=== PATIENT | female | born 1970 | race Caucasian/White ===

== ENCOUNTER → 2017-06-03 | Outpatient (CLI) | payer MEDICAID ==
[~2017-06-03] MED LIST: ALBU18HF INH; BUPR150T6 PO; BUTA1CAP59 PO; CHRO1TAB7 PO; CYCL-259 PO; FEXO180T15 PO; MELO15TA24 PO; ONDA4TAB12 PO; OXYC-307 PO; PROM25TA10 PO; SERT100T PO; SUMA100T4 PO; TURM500C7 PO
== END | disposition home or self-care (01) ==
LOC: STAR 11:28
PROVIDERS: ATTEND Specialist
DX: Z02.9 Encounter for administrative examinations, unspecified (principal)

== ENCOUNTER 2017-06-10 07:47 | Day surgery (SDC) | payer MEDICAID ==
[~2017-06-10] VITALS: Ht 165.1 cm; Wt 69.2 kg
[2017-06-10] MEDS ORDERED: LACTATED RINGERS 1,000 ML IV SCH (08:13)
[2017-06-10 08:39] VITALS: BP 116/77
[2017-06-10] MEDS ORDERED: MIDAZOLAM 1 MG/ML, 2ML ONE ×2 (09:24→11:25)
[2017-06-10] MEDS ORDERED: FENTANYL PF 100 MCG/2ML ONE ×3 (09:25→11:25)
[2017-06-10] MEDS ORDERED: KETOROLAC 30 MG/1 ML ONE (10:15)
[2017-06-10] MEDS ORDERED: NEOSTIGMINE 1 MG/ML, 10ML ONE (10:15)
[2017-06-10] MEDS ORDERED: DEXAMETHASONE 4 MG/ML, 1ML ONE (10:15)
[2017-06-10] MEDS ORDERED: PROPOFOL 10 MG/ML, 20ML ONE (10:15)
[2017-06-10] MEDS ORDERED: GLYCOPYRROLATE 0.2MG/1ML, 5ML ONE (10:15)
[2017-06-10] MEDS ORDERED: ONDANSETRON 2MG/ML, 2ML ONE (10:15)
[2017-06-10] MEDS ORDERED: SUCCINYLCHOLINE 20 MG/ML, 10ML ONE (10:15)
[2017-06-10] MEDS ORDERED: ROCURONIUM 10 MG/ML ONE (10:15)
[2017-06-10] MEDS ORDERED: ACETAMINOPHEN 650 MG/20.3 ML UDC ONE (11:24)
[2017-06-10] MEDS ORDERED: OXYcodone 5 MG/5 ML ORAL.SOL UDC ONE (11:25)
[2017-06-10] MEDS ORDERED: METOPROLOL 1 MG/ML, 5ML IV PRN (11:30)
[2017-06-10] MEDS ORDERED: ALBUTEROL SULFATE 2.5 MG/3 ML NPPB PRN (11:30)
[2017-06-10] MEDS ORDERED: HYDROcodone/APAP 7.5-325MG/15ML UDC PO PRN (11:30)
[2017-06-10] MEDS ORDERED: PROMETHAZINE 25 MG/ML, 1ML IV PRN (11:30)
[2017-06-10] MEDS ORDERED: OXYcodone 5 MG/5 ML ORAL.SOL UDC PO PRN (11:30)
[2017-06-10] MEDS ORDERED: DIAZEPAM 5 MG/ML, 2ML IVPush PRN (11:30)
[2017-06-10] MEDS ORDERED: hydrALAzine 20 MG/ML, 1ML IV PRN (11:30)
[2017-06-10] MEDS ORDERED: METOCLOPRAMIDE 5 MG/ML, 2ML IV PRN (11:30)
[2017-06-10] MEDS ORDERED: ONDANSETRON 2MG/ML, 2ML IVPush PRN (11:30)
[2017-06-10] MEDS ORDERED: ACETAMINOPHEN 325 MG TABLET PO PRN (11:30)
[2017-06-10] MEDS ORDERED: LABETALOL 5MG/ML, 20ML IV PRN (11:30)
[2017-06-10] MEDS ORDERED: HYDROmorphone 1 MG/ML, 1ML IV PRN (11:30)
[2017-06-10] MEDS ORDERED: EPHEDRINE 50 MG/ML, 1ML IVPush PRN (11:30)
[2017-06-10] MEDS: FENTANYL PF 100 MCG/2ML IV PRN ×2 (11:34→11:49)
[2017-06-10] MEDS: MIDAZOLAM 1 MG/ML, 2ML IV PRN ×2 (11:39→11:55)
== END 2017-06-10 13:30 ==
LOC: OUT 07:47
PROVIDERS: ATTEND Specialist
DX: D27.1 Benign neoplasm of left ovary (principal); J45.909 Unspecified asthma, uncomplicated; G89.29 Other chronic pain
CPT/HCPCS: 58661; 88302; 88307; 88341; 88342; J0330; J1100; J1885; J2250; J2405; J2704; J2710; J3010; J7120; 88305; J3490; G0461